=== PATIENT | female | born 1950 | race Caucasian/White ===

== ENCOUNTER 2020-08-30 23:04 | Inpatient (IN) | payer MEDICARE ==
[~2020-08-30] VITALS: Ht 154.9 cm; Wt 68.5 kg
[2020-08-30] MEDS ORDERED: ASPIRIN 81 MG CHEW TAB PO ONE (23:15)
[2020-08-30 23:30] LABS: BASOPHILS % 0.4 % (0.0-1.0); EOSINOPHILS # (AUTO) 0.1 (0.0-0.4); EOSINOPHILS % 0.7 % (0.0-6.0); HEMATOCRIT 29.5 % (34.2-44.1); HEMOGLOBIN 10.3 g/dL (12.0-16.0); LYMPHOCYTES # (AUTO) 0.8 (1.0-3.2); LYMPHOCYTES % 10.4 % (18.0-39.1); MEAN CORPUSCULAR HEMOGLOBIN 29.8 pg (28-32); MEAN CORPUSCULAR HGB CONC 34.9 g/dL (31-35); MEAN CORPUSCULAR VOLUME 85.3 fL (81-99); MONOCYTES # (AUTO) 0.9 (0.2-0.8); MONOCYTES % 12.3 % (4.4-11.3); NEUTROPHILS # (AUTO) 5.8 (2.1-6.9); NEUTROPHILS % 75.7 % (38.7-80.0); PLATELET COUNT 342 x10e3/uL (140-360); RED BLOOD COUNT 3.46 x10e6/uL (3.6-5.1); RED CELL DISTRIBUTION WIDTH 11.1 % (11.7-14.4)
[2020-08-30 23:32] LABS: CLARITY,URINE CLEAR (CLEAR); COLOR,URINE YELLOW (YELLOW); KETONES,URINE NEGATIVE (NEGATIVE); LEUKOCYTE ESTERASE ,URINE NEGATIVE (NEGATIVE); NITRITE,URINE NEGATIVE (NEGATIVE); PROTEIN,URINE DIPSTICK NEGATIVE (NEGATIVE); URINE UROBILINOGEN 0.2 mg/dL (0.2 - 1)
[2020-08-30 23:38] LABS: BACTERIA,URINE FEW /HPF; EPITHELIAL CELLS,URINE MODERATE /LPF; RBC,URINE 0-5 /HPF (0-5); WBC,URINE (MAN) 0-5 /HPF (0-5)
[2020-08-30 23:52] LABS: ALBUMIN 4.1 g/dL (3.5-5.0); ANION GAP 14.1 mmol/L (8-16); CALCIUM 10.8 mg/dL (8.4-10.2); CREATININE, SERUM 1.7 mg/dL (0.57-1.11); POTASSIUM 5.1 mmol/L (3.5-5.1)
[2020-08-30 23:59] LABS: CREATINE KINASE MB 18.1 ng/mL (0-5.0)
[2020-08-31] VITALS (12 sets, daily range): BP systolic 94–131; BP diastolic 52–72
[2020-08-31] MEDS ORDERED: ONDANSETRON HCL INJ 2MG/ML 2ML 2 MG/ML VIAL IV PRN
[2020-08-31] MEDS ORDERED: MORPHINE SULFATE INJ 4 MG/ML INJ 1ML IV PRN
[2020-08-31] MEDS: SODIUM CHLORIDE 0.9% 1000ML 1,000 ML IV SCH ×2 (00:10→10:50)
[2020-08-31] MEDS ORDERED: PRAVASTATIN SOD40 MG (02:18)
[2020-08-31] MEDS ORDERED: NORVASC5 MG PO (02:18)
[2020-08-31] MEDS ORDERED: LEVOTHYROXINE75 MCG PO (02:18)
[2020-08-31] MEDS ORDERED: OLMESARTAN-HCT1 EAC2 PO (02:18)
[2020-08-31] MEDS ORDERED: DOCUSATE SODIUM 100 MG CAP PO PRN (06:00)
[2020-08-31] MEDS ORDERED: ACETAMINOPHEN 325 MG TAB PO PRN (06:00)
[2020-08-31] MEDS ORDERED: ZOLPIDEM TARTRATE 5 MG TAB PO PRN (06:00)
[2020-08-31] MEDS: LEVOTHYROXINE SODIUM 75 MCG TAB PO SCH ×2 (06:20→06:29)
[2020-08-31 06:36] LABS: BASOPHILS % 0.3 % (0.0-1.0); EOSINOPHILS # (AUTO) 0.1 (0.0-0.4); HEMATOCRIT 27.7 % (34.2-44.1); HEMOGLOBIN 9.8 g/dL (12.0-16.0); LYMPHOCYTES # (AUTO) 1.2 (1.0-3.2); LYMPHOCYTES % 17.6 % (18.0-39.1); MEAN CORPUSCULAR HEMOGLOBIN 30.5 pg (28-32); MEAN CORPUSCULAR HGB CONC 35.4 g/dL (31-35); MEAN CORPUSCULAR VOLUME 86.3 fL (81-99); MONOCYTES # (AUTO) 1.1 (0.2-0.8); MONOCYTES % 14.9 % (4.4-11.3); NEUTROPHILS # (AUTO) 4.6 (2.1-6.9); NEUTROPHILS % 64.6 % (38.7-80.0); PLATELET COUNT 302 x10e3/uL (140-360); RED BLOOD COUNT 3.21 x10e6/uL (3.6-5.1); RED CELL DISTRIBUTION WIDTH 11.2 % (11.7-14.4)
[2020-08-31 07:02] LABS: ALBUMIN 3.4 g/dL (3.5-5.0); ALBUMIN/GLOBULIN RATIO 0.9 (0.8-2.0); ANION GAP 12.3 mmol/L (8-16); CALCIUM 9.8 mg/dL (8.4-10.2); CREATININE, SERUM 1.59 mg/dL (0.57-1.11); POTASSIUM 5.3 mmol/L (3.5-5.1)
[2020-08-31] MEDS: AMLODIPINE BESYLATE 5 MG TAB PO SCH (08:29)
[2020-08-31 08:42] LABS: CREATINE KINASE MB 13.8 ng/mL (0-5.0)
[2020-08-31] MEDS ORDERED: LEVOTHYROXINE SODIUM 75 MCG TAB PO SCH (09:00)
[2020-08-31] MEDS: DOXYCYCLINE 100MG/NS 100ML 100 ML IV SCH (13:55)
[2020-08-31] MEDS ORDERED: PIPERACILLIN/TAZO 2.25 GM 50 ML IV SCH (14:00)
[2020-08-31] MEDS ORDERED: CLINDAMYCIN 300MG 50 ML IV SCH (14:00)
[2020-08-31] MEDS: PIPERACILLIN/TAZO 2.25 GM 50 ML IV SCH ×2 (15:36→21:46)
[2020-08-31 16:10] LABS: CREATINE KINASE 1302 IU/L (29-168)
[2020-09-01] VITALS (8 sets, daily range): BP systolic 95–119; BP diastolic 54–64
[2020-09-01] MEDS: DOXYCYCLINE 100MG/NS 100ML 100 ML IV SCH ×2 (02:28→14:51)
[2020-09-01] MEDS: SODIUM CHLORIDE 0.9% 1000ML 1,000 ML IV SCH ×3 (04:51→16:07)
[2020-09-01] MEDS: PIPERACILLIN/TAZO 2.25 GM 50 ML IV SCH ×3 (05:06→21:41)
[2020-09-01] MEDS: LEVOTHYROXINE SODIUM 75 MCG TAB PO SCH (05:07)
[2020-09-01] MEDS: AMLODIPINE BESYLATE 5 MG TAB PO SCH (09:10)
[2020-09-02] VITALS (7 sets, daily range): BP systolic 106–131; BP diastolic 57–67
[2020-09-02] MEDS: DOXYCYCLINE 100MG/NS 100ML 100 ML IV SCH ×2 (01:29→14:30)
[2020-09-02] MEDS: SODIUM CHLORIDE 0.9% 1000ML 1,000 ML IV SCH (01:29)
[2020-09-02] MEDS: PIPERACILLIN/TAZO 2.25 GM 50 ML IV SCH ×3 (05:37→21:25)
[2020-09-02] MEDS: LEVOTHYROXINE SODIUM 75 MCG TAB PO SCH (05:37)
[2020-09-02] MEDS: AMLODIPINE BESYLATE 5 MG TAB PO SCH (09:21)
[2020-09-03] VITALS (8 sets, daily range): BP systolic 118–146; BP diastolic 57–75
[2020-09-03] MEDS: DOXYCYCLINE 100MG/NS 100ML 100 ML IV SCH ×2 (01:48→14:07)
[2020-09-03] MEDS: LEVOTHYROXINE SODIUM 75 MCG TAB PO SCH (06:00)
[2020-09-03] MEDS: PIPERACILLIN/TAZO 2.25 GM 50 ML IV SCH ×3 (06:00→21:20)
[2020-09-03 06:58] LABS: ANION GAP 8.5 mmol/L (8-16); CALCIUM 9.9 mg/dL (8.4-10.2); CREATININE, SERUM 1.12 mg/dL (0.57-1.11); MAGNESIUM 1.5 MG/DL (1.3-2.1); PHOSPHORUS 2.5 MG/DL (2.3-4.7); POTASSIUM 4.5 mmol/L (3.5-5.1)
[2020-09-03] MEDS ORDERED: MIDAZOLAM HCL 2 MG/2 ML VIAL ONE (12:03)
[2020-09-03] MEDS ORDERED: FENTANYL CITRATE/PF 100MCG/2 ML INJ ONE (12:03)
[2020-09-03] MEDS ORDERED: ONDANSETRON HCL INJ 2MG/ML 2ML 2 MG/ML VIAL IV PRN (15:00)
[2020-09-03] MEDS ORDERED: ACETAMINOPHEN/CODEINE 300MG - 30MG TAB PO PRN (15:00)
[2020-09-03] MEDS: AMLODIPINE BESYLATE 5 MG TAB PO SCH (16:00)
[2020-09-03] MEDS ORDERED: SEVOFLURANE INHAL SOLN 250 ML PEN BTL ONE (17:44)
[2020-09-03] MEDS ORDERED: PROPOFOL IV EMULSION 10 MG/ML 20 ML VIAL ONE (17:44)
[2020-09-03] MEDS ORDERED: ONDANSETRON HCL INJ 2MG/ML 2ML 2 MG/ML VIAL ONE (17:44)
[2020-09-03] MEDS ORDERED: LIDOCAINE HCL 2% LOCAL INJ 5 ML SDV VIAL INJ ONE (17:44)
[2020-09-03] MEDS ORDERED: SUCCINYLCHOLINE CHLORIDE 20 MG/ML 10ML VIAL ONE (17:44)
[2020-09-04] VITALS: BP 115/59
[2020-09-04] MEDS: DOXYCYCLINE 100MG/NS 100ML 100 ML IV SCH (02:44)
[2020-09-04 04:00] VITALS: BP 124/69
[2020-09-04] MEDS: LEVOTHYROXINE SODIUM 75 MCG TAB PO SCH (05:53)
[2020-09-04] MEDS: PIPERACILLIN/TAZO 2.25 GM 50 ML IV SCH (05:53)
[2020-09-04 07:22] LABS: ANION GAP 9.7 mmol/L (8-16); CALCIUM 10.1 mg/dL (8.4-10.2); CREATININE, SERUM 1.24 mg/dL (0.57-1.11); MAGNESIUM 1.4 MG/DL (1.3-2.1); POTASSIUM 4.7 mmol/L (3.5-5.1)
[2020-09-04 07:41] LABS: PHOSPHORUS 2.9 MG/DL (2.3-4.7)
[2020-09-04 07:55] VITALS: BP 122/67
[2020-09-04 08:55] VITALS: BP 122/67
[2020-09-04] MEDS: AMLODIPINE BESYLATE 5 MG TAB PO SCH (09:00)
[2020-09-04] MEDS ORDERED: DOXYCYCLINE HY100 MG PO (09:09)
[2020-09-04] MEDS ORDERED: KEFLEX500 MG PO (09:09)
[2020-09-04] MEDS ORDERED: ULTRAM 50MG50 MG PO (09:19)
[2020-09-04 10:59] VITALS: BP 118/75
[2020-09-04 11:38] VITALS: BP 110/61
== END 2020-09-04 15:09 | disposition home or self-care (01) | DRG 988 ==
LOC: ER 23:19 → ERHOLD 23:59 → MED/SURG3 08-31 00:41 → OBSVTOIN 09-01 06:58
PROVIDERS: ADMIT Internal Medicine; ATTEND Internal Medicine
PROC: 0J990ZZ Drainage of Buttock Subcutaneous Tissue and Fascia, Open Approach (ICD-10-PCS; principal; 2020-09-03 13:30)
DX: N17.9 Acute kidney failure, unspecified (principal); E87.1 Hypo-osmolality and hyponatremia; M62.82 Rhabdomyolysis; L02.31 Cutaneous abscess of buttock; N18.30 Chronic kidney disease, stage 3 unspecified; E87.5 Hyperkalemia; I12.9 Hypertensive chronic kidney disease with stage 1 through stage 4 chronic kidney disease, or unspecified chronic kidney disease; E03.9 Hypothyroidism, unspecified; E78.5 Hyperlipidemia, unspecified; Z80.8 Family history of malignant neoplasm of other organs or systems; L72.8 Other follicular cysts of the skin and subcutaneous tissue
CPT/HCPCS: 36415; 71045; 80048; 80053; 81001; 82550; 82553; 83690; 83735; 83880; 84100; 84295; 84443; 84484; 85025; 87071; 87075; 87205; 93005; 99284; G0378; J0330; J2001; J2250; J2405; J2543; J3010; J7030; U0002

== ENCOUNTER 2021-02-25 15:22 | Emergency (ER) | payer MEDICARE ==
[~2021-02-25] VITALS: Ht 154.9 cm; Wt 68.5 kg
[~2021-02-25 15:22] MED LIST: DOXYCYCLINE HY100 MG PO; KEFLEX500 MG PO; LEVOTHYROXINE75 MCG PO; NORVASC5 MG PO; OLMESARTAN-HCT1 EAC2 PO; PRAVASTATIN SOD40 MG; ULTRAM 50MG50 MG PO
[2021-02-25] MEDS ORDERED: SODIUM CHLORIDE 0.9% 1000ML 1,000 ML IV STA (15:54)
[2021-02-25] MEDS ORDERED: DIAZEPAM 5 MG TAB PO PRN (16:00)
[2021-02-25] MEDS ORDERED: MECLIZINE HCL 12.5 MG TAB PO ONE (16:00)
[2021-02-25 16:23] LABS: BASOPHILS % 0.3 % (0.0-1.0); EOSINOPHILS # (AUTO) 0.1 (0.0-0.4); EOSINOPHILS % 1.2 % (0.0-6.0); HEMATOCRIT 36.8 % (34.2-44.1); LYMPHOCYTES % 15.2 % (18.0-39.1); MEAN CORPUSCULAR HEMOGLOBIN 29.6 pg (28-32); MEAN CORPUSCULAR HGB CONC 32.6 g/dL (31-35); MEAN CORPUSCULAR VOLUME 90.9 fL (81-99); MONOCYTES # (AUTO) 0.4 (0.2-0.8); MONOCYTES % 6.1 % (4.4-11.3); NEUTROPHILS # (AUTO) 5.1 (2.1-6.9); PLATELET COUNT 266 x10e3/uL (140-360); RED BLOOD COUNT 4.05 x10e6/uL (3.6-5.1); RED CELL DISTRIBUTION WIDTH 12.6 % (11.7-14.4)
[2021-02-25 16:42] LABS: ALANINE AMINOTRANSFERASE 16 IU/L (0-55); ALBUMIN 4.1 g/dL (3.5-5.0); ALKALINE PHOSPHATASE 129 IU/L (40-150); ANION GAP 15.4 mmol/L (8-16); BLOOD UREA NITROGEN 22 mg/dL (7-26); BUN/CREATININE RATIO 23 (6-25); CALCIUM 11.2 mg/dL (8.4-10.2); CARBON DIOXIDE 25 mmol/L (22-29); CHLORIDE 105 mmol/L (98-107); CREATINE KINASE 51 IU/L (29-168); CREATININE, SERUM 0.97 mg/dL (0.57-1.11); EST GLOMERULAR FILTRATION RATE 57 ML/MIN (60-); GLUCOSE 93 mg/dL (74-118); POTASSIUM 4.4 mmol/L (3.5-5.1); SODIUM 141 mmol/L (136-145)
[2021-02-25 16:49] LABS: CLARITY,URINE CLEAR (CLEAR); COLOR,URINE YELLOW (YELLOW); KETONES,URINE NEGATIVE (NEGATIVE); LEUKOCYTE ESTERASE ,URINE NEGATIVE (NEGATIVE); NITRITE,URINE NEGATIVE (NEGATIVE); PROTEIN,URINE DIPSTICK NEGATIVE (NEGATIVE); URINE UROBILINOGEN 0.2 mg/dL (0.2 - 1)
[2021-02-25 16:59] LABS: BACTERIA,URINE MODERATE /HPF; EPITHELIAL CELLS,URINE RARE /LPF
[2021-02-25] MEDS ORDERED: IOPAMIDOL 370 MG/ML 200 ML INFUS..BTL INJ ONE (17:09)
[2021-02-25] MEDS ORDERED: SODIUM CHLORIDE 0.9% 100 ML ONE (17:09)
== END 2021-02-25 19:03 | disposition home or self-care (01) ==
LOC: ER 15:54
DX: R42 Dizziness and giddiness (principal); I10 Essential (primary) hypertension; E78.5 Hyperlipidemia, unspecified; E03.9 Hypothyroidism, unspecified
CPT/HCPCS: 36415; 70496; 71045; 80053; 81001; 82550; 82553; 84484; 85025; 99284; J7030; J7050; J8597; Q9967

== ENCOUNTER → 2024-08-22 | Outpatient (REF) | payer MEDICARE ==
[~2024-08-22] MED LIST changes: +BENICAR20 MG PO
== END ==
LOC: DX 09:16
PROVIDERS: ATTEND Family Medicine
DX: K21.9 Gastro-esophageal reflux disease without esophagitis (principal)
CPT/HCPCS: 74246

== ENCOUNTER → 2024-09-01 | Outpatient (REF) | payer MEDICARE | LOC: US 09:20 | PROVIDERS: ATTEND Family Medicine | DX: K80.20 Calculus of gallbladder without cholecystitis without obstruction (principal) | CPT/HCPCS: 76700; 78227; A9537 ==

== ENCOUNTER → 2025-01-10 | Outpatient (REF) | payer MEDICARE | LOC: RAD 12:00 | PROVIDERS: ATTEND Family Medicine | DX: M19.012 Primary osteoarthritis, left shoulder (principal) ==